=== PATIENT | female | born 1970 | race Hispanic/Latino ===

== ENCOUNTER 2022-08-09 13:55 | Emergency (ER) | payer SELFPAY ==
[2022-08-09] MEDS ORDERED: NA CHLORIDE 0.9% 1,000 ML ONE (14:24)
[2022-08-09 14:39] LABS: Absolute Lymphocytes (CBC) 1.2 K/uL (0.7-4.9); Hematocrit 23.6 % (36.0-45.0); Lymphocytes % 16.1 % (15.3-44.8); MCV 68.8 fL (80-100); MPV 6.4 fL (7.6-11.3); RBC Red Blood Cell Count 3.43 M/uL (3.86-4.86)
[2022-08-09] MEDS ORDERED: dilTIAZem HCL 25 MG/5 ML VIAL IV ONE (14:41)
[2022-08-09 14:59] LABS: Albumin 2.2 g/dL (3.4-5.0); Bilirubin Direct 0.1 mg/dL (0-0.2); Bilirubin Indirect, Calculated 0.3 mg/dL (0.2-0.8); Bilirubin Total 0.4 mg/dL (0.2-1.0); Magnesium 1.9 mg/dL (1.6-2.4); Potassium 2.8 mEq/L (3.5-5.1); Troponin High Sensitivity 7.1 pg/mL (<58.9)
[2022-08-09] MEDS ORDERED: POTASSIUM CL SA 10 MEQ TAB PO ONE (15:48)
[2022-08-09] MEDS ORDERED: AMIODARONE HCL 150 MG/3 ML INJ IV ONE (15:48)
[2022-08-09] MEDS ORDERED: KCL 20 MEQ/100 mL IVPB 200 ML IV ONE (15:48)
[2022-08-09] MEDS ORDERED: D5W 100 ML IV ONE (15:49)
--- NOTE | 2022-08-09 15:53 | RAD REPORT ---
EXAM DESCRIPTION: CT - Abdomen Pelvis W Contrast - 08/09/2022 3:17 pm CLINICAL HISTORY: ABD PAIN COMPARISON: No comparisons TECHNIQUE: Thin cut axial CT imaging of the abdomen and pelvis was performed following intravenous a dministration of 75 mL Isovue 300. Multiplanar reformats were generated and reviewed. All CT scans are performed using dose optimization technique as appropriate and may include automated exposure control or mA/KV adjustment according to patient size. FINDINGS: No suspicious findings in the lung bases. The liver, spleen, and pancreas show no suspicious findings. Gallbladder and biliary tree are also wi thout suspicious finding. Symmetric renal function is seen with no hydronephrosis or suspicious renal mass. No dilated bowel loops. Nonspecific fluid filling throughout small bowel loops fall through the abdom en. The appendix is visualized and is normal appearance. Short segment of mid sigmoid colon wall thic kening with adjacent pronounced inflammatory changes, measuring 6.5 centimeter in length. There is an adjacent fluid collection along the posteroinferior adventitia of the colon, extending into the deep pelvis, interposed between the colonic segment and the anterior wall of the retroverted uterus, jorge uring 5.0 x 4.8 x 2.8 centimeter in greatest CC, transverse, and AP dimensions. The pattern of enhanc ement of the involved sigmoid segment is rather nodular. There is abrupt transition to the non inflam ed bowel both proximally and distally, therefore an underlying mucosal mass cannot be entirely exclud ed. No free air, or free fluid. No hernia, mass or bulky lymphadenopathy. The urinary bladder is with out significant finding. No suspicious bony findings. IMPRESSION: Short segment of colonic wall thickening with nodular enhancement involving the mid sigm oid colon, measuring 6.5 centimeter in length. Adjacent fluid collection posterior inferiorly measuri ng up to 5 centimeter in size, concerning for a paracolic abscess. This could potentially be accessib le through a left posterior approach, although some intervening left internal iliac vascular branches may limit safety of the approach. Given the nodular appearance of the enhancement and the abrupt transition to the more distal and prox imal segments of the sigmoid colon, an underlying mucosal mass cannot be entirely excluded. Follow-up cross-sectional imaging or colonoscopy would be recommended following resolution of the infection, t o exclude an underlying mass. The findings were communicated to Adama Hoang on 08/09/2022 at 15:45 hours.
[2022-08-09 16:10] LABS: Protime INR 1.28
[2022-08-09] MEDS ORDERED: NA CHLORIDE 0.9% 100 ML ONE (17:24)
[2022-08-09] MEDS ORDERED: PIPERACIL/TAZO 3.375 GM VIAL IV ONE (17:24)
--- NOTE | 2022-08-09 17:24 | ER ---
Nurse's Notes [facility] Name: Anastasia Duran Age: 52 yrs Sex: Female : 1970 Arrival Date: 08/09/2022 Time: 13:55 Bed 16 Private MD: Diagnosis: Perforated diverticulitis with abscess;Atrial flutter with rapid rate;Hypokalemia;Syncope Presentation: 08/09 13:53 Method Of Arrival: EMS: [facility] 13:53 Coronavirus screen: Vaccine status: Patient reports being unvaccinated. Ebola Screen: nj1 Patient denies travel to an Ebola-affected area in the 21 days before illness onset. Initial Sepsis Screen: Does the patient meet any 2 criteria? HR > 90 bpm. No. Patient's initial sepsis screen is negative. Does the patient have a suspected source of infection? No. Patient's initial sepsis screen is negative. 14:13 Chief complaint: Patient states: [facility], had nj1 severe abdominal pain, pass out, was incontinent of urine/stool. 14:13 Risk Assessment: Do you want to hurt yourself or someone else? Patient reports no [facility] desire to harm self or others. Onset of symptoms was August 09, 2022. 14:13 Acuity: DO 2 nj1 Triage Assessment: 14:15 Pain: Denies pain. nj1 14:15 General: Appears in no apparent distress. uncomfortable, Behavior is calm, cooperative, nj1 appropriate for age. 14:15 Neuro: Level of Consciousness is awake, alert, obeys commands, Oriented to person, nj1 place, time, situation. Cardiovascular: Rhythm is Tachy. Respiratory: Airway is patent Respiratory effort is even, unlabored. GI: Patient currently denies abdominal pain. Derm: Skin is pale. Historical: - Allergies: 14:13 No Known Allergies; nj1 - PMHx: 14:13 None; nj1 - PSHx: 14:13 None; nj1 - Immunization history:: Client reports having NOT received the Covid vaccine. - Social history:: Smoking status: Patient denies any tobacco usage or history of. - Family history:: not pertinent. Screenin:[facility] ED Fall Risk Assessment (Adult) History of falling in the last 3 months, nj1 including since admission Yes- physiologic fall (2 pts) Confusion or Disorientation No (0 pts) Intoxicated or Sedated No (0 pts) Impaired Gait No (0 pts) Mobility Assist Device Used No (0 pt) Altered Elimination Score/Fall Risk Level 0 - 2 = Low Risk Oriented to surroundings, Maintained a safe environment, Hourly rounding (assess needs \T\ fall precautionary measures) done. Abuse screen: Denies threats or abuse. Denies injuries from another. Nutritional screening: No deficits noted. Tuberculosis screening: No symptoms or risk factors identified. Assessment: 14:40 Reassessment: Patient appears in no apparent distress at this time. Patient and/or nj1 family updated on plan of care and expected duration. Pain level reassessed. Patient is alert, oriented x 3, equal unlabored respirations, skin warm/dry/pink. Patient denies pain at this time. 15:50 Reassessment: Patient appears in no apparent distress at this time. Patient and/or nj1 family updated on plan of care and expected duration. Pain level reassessed. Patient is alert, oriented x 3, equal unlabored respirations, skin warm/dry/pink. Patient denies pain at this time. 16:20 Reassessment: Patient appears in no apparent distress at this time. Patient and/or nj1 family updated on plan of care and expected duration. Pain level reassessed. Patient is alert, oriented x 3, equal unlabored respirations, skin warm/dry/pink. Patient denies pain at this time. 17:25 Reassessment: Patient appears in no apparent distress at this time. Patient and/or nj1 family updated on plan of care and expected duration. Pain level reassessed. Patient is alert, oriented x 3, equal unlabored respirations, skin warm/dry/pink. Patient denies pain at this time. 18:55 Reassessment: Patient appears in no apparent distress at this time. Patient and/or nj1 family updated on plan of care and expected duration. Pain level reassessed. Patient is alert, oriented x 3, equal unlabored respirations, skin warm/dry/pink. Feels warm. 19:08 Reassessment: Report called to nurse Patten at [facility]. [facility] 19:45 Reassessment: Patient appears in no apparent distress at this time. Patient and/or nj1 family updated on plan of care and expected duration. Pain level reassessed. Patient is alert, oriented x 3, equal unlabored respirations, skin warm/dry/pink. Patient denies pain at this time. Patient states feeling better. Patient states symptoms have improved. 20:05 Reassessment: Report given to Damien FUNG, [facility]. [facility] Vital Signs: 14:13 BP 127 / 70; Pulse 146; Resp 18; Temp 98.8(O); Pulse Ox 100% on R/A; Weight 49.9 kg; nj1 Height 5 ft. 0 in. ; Pain 0/10; 14:15 Pulse Ox 2 lpm NC; nj1 14:42 BP 98 / 60; Pulse 138; Resp 18; Pulse Ox 100% on 2 lpm NC; nj1 15:30 BP 105 / 66; Pulse 138; Resp 16; Pulse Ox 100% on 2 lpm NC; nj1 16:16 BP 108 / 64; Pulse 125; Resp 16; Pulse Ox 100% on 2 lpm NC; nj1 17:48 BP 103 / 70; Pulse 119; Resp 16; Pulse Ox 100% on 2 lpm NC; nj1 18:50 BP 94 / 63; Pulse 115; Resp 16; Temp 100.1(O); Pulse Ox 100% on 2 lpm NC; Pain 0/10; nj1 19:45 BP 96 / 68; Pulse 105; Resp 17; Temp 99.2(O); Pulse Ox 100% on 2 lpm NC; Pain 0/10; nj1 14:13 Body Mass Index 21.48 (49.90 kg, 152.4 cm) nj 14:13 Pain Scale: Adult [facility] 18:50 Pain Scale: Adult [facility] 19:45 Pain Scale: Adult [facility] ED Course: 13:58 Patient arrived in ED. eb 14:01 Adama Hoang MD is Attending Physician. rt 14:15 Patient has correct armband on for positive identification. Bed in low position. Call [facility] light in reach. 14:26 EKG done, by ED staff. tm3 14:27 Lesvia Sanchez, LUCY is Primary Nurse. nj1 14:29 Radiology exam delayed due to lab results not completed at this time. (BUN/Creatinine) jg10 IV insertion attempt and/or patient not having appropriate IV at this time. 14:47 Triage completed. nj1 14:48 Arm band placed on. nj1 14:55 XRAY Chest (1 view) In Process Unspecified. EDMS 15:19 CT Abd/Pelvis - IV Contrast Only In Process Unspecified. EDMS 15:41 Inserted saline lock: 20 gauge in right antecubital area, using aseptic technique. db 17:12 Blood Culture Adult (2) Sent. hb 17:12 Lactate w/ 2H reflex if indic. Sent. hb 17:26 initiated a transfer with ALEJO Campo from the [facility] Transfer Center/ per ALEJO . [facility], [facility], [facility] and [facility] are all at capacity and will have to decline the patient in transfer/. 17:26 initiated a transfer with Rohini from the [facility] transfer center/ She will check her eb facilities and see which has GI and IR and will call us back. 17:50 per Rohini [facility], [facility], and [place] will have to decline the patient they eb do not have the services requested. 17:[address] Hoang with the GI press set up person for [facility] for patient transfer eb consultation. 18:[address] Hoang with final doc-to-doc. mb4 18:03 Acceptance at [facility] \[id number]. mb4 19:19 No provider procedures requiring assistance completed. nj1 19:19 Patient transferred, IV remains in place. nj1 Administered Medications: 14:20 Drug: NS 0.9% IV 1000 ml Route: IV; Rate: 1 bolus; Site: left antecubital; nj1 15:20 Follow up: Response: No adverse reaction; IV Status: Completed infusion; IV Intake: nj1 1000ml 14:36 Drug: Diltiazem IVP 10 mg Route: IVP; Infused Over: 2 mins; Site: left antecubital; nj1 15:32 Follow up: Response: No adverse reaction nj1 15:55 Drug: D5W IVPB 100 ml, amiodarone IVPB 150 mg 150 mg Volume: 100 ml; Route: IVPB; Rate: nj1 588 ml/hr; Infused Over: 10 mins; Site: left antecubital; 16:05 Follow up: Response: No adverse reaction; IV Status: Completed infusion; IV Intake: nj1 100ml 16:05 Drug: Potassium Chloride PO 40 mEq Route: PO; nj1 17:54 Follow up: Response: No adverse reaction nj1 16:09 Drug: Potassium Chloride IV 40 mEq Route: IV; Rate: calculated rate; Site: left nj1 antecubital; 17:25 Drug: Piperacillin-Tazobactam IVPB 3.375 grams Route: IVPB; Infused Over: 60 mins; nj1 Site: right antecubital; 17:58 Follow up: Response: No adverse reaction; IV Status: Completed infusion; IV Intake: nj1 100ml 18:55 Drug: Acetaminophen PO 1000 mg Route: PO; nj1 19:45 Follow up: Response: No adverse reaction; Temperature is decreased nj1 Medication: 19:19 VIS not applicable for this client. nj1 Intake: 15:20 IV: 1000ml; Total: 1000ml. nj1 16:05 IV: 100ml; Total: 1100ml. nj1 17:58 IV: 100ml; Total: 1200ml. nj1 Outcome: 17:23 ER care complete, transfer ordered by . rt 19:15 Transferred by ground EMS to other acute care facility: [facility]. Transfer form nj1 completed. 19:15 Condition: stable nj1 19:15 Instructed on the need for transfer. 20:15 Patient left the ED. nj1 Signatures: Dispatcher [employer] EDMS Kyler Go tm3 Renetta Dawson, Melba Cuellar RN, Mackenzie mb4 Fallon Shaffer RN RN db Galvan, Juliet jg10 Adama Hoang MD MD rt Lesvia Sanchez RN RN nj1
--- NOTE | 2022-08-09 17:25 | EDPHYS ---
Physician Documentation [facility] Name: Anastasia Duran Age: 52 yrs Sex: Female : 1970 Arrival Date: 08/09/2022 Time: 13:55 Bed 16 Private MD: ED Physician Adama Hoang HPI: 08/09 16:42 This 52 yrs old Female presents to ER via EMS with complaints of Syncope, rt abdominal pain. 16:42 Patient presents to the ED with an acute onset of a lower abdominal pain. It was severe rt and lasted for about 15 minutes. Patient was visiting a family member any nursing, that occurred. She subsequently became very lightheaded, had a syncopal event. Denies any chest pain. Patient states that the abdominal pain has improved but is still present. She reported nausea the vomiting. Denies other acute complaints at this time. Symptoms are moderate severity, no other aggravating or alleviating factors.. Historical: - Allergies: 14:13 No Known Allergies; nj1 - PMHx: 14:13 None; nj1 - PSHx: 14:13 None; nj1 - Immunization history:: Client reports having NOT received the Covid vaccine. - Social history:: Smoking status: Patient denies any tobacco usage or history of. - Family history:: not pertinent. ROS: 16:42 Constitutional: Negative for fever, chills, and weight loss, Cardiovascular: Negative rt for chest pain, palpitations, and edema, Respiratory: Negative for shortness of breath, cough, wheezing, and pleuritic chest pain, MS/Extremity: Negative for injury and deformity, Skin: Negative for injury, rash, and discoloration, Psych: Negative for depression, anxiety, suicide ideation, homicidal ideation, and hallucinations. 16:42 Abdomen/GI: Positive for abdominal pain, nausea. 16:42 Neuro: Positive for syncope, Negative for altered mental status. Exam: 16:42 Constitutional: This is a well developed, well nourished patient who is awake, alert, rt and in no acute distress. Head/Face: Normocephalic, atraumatic. Chest/axilla: Normal chest wall appearance and motion. Nontender with no deformity. No lesions are appreciated. Cardiovascular: Regular rate and rhythm with a normal S1 and S2. No gallops, murmurs, or rubs. Normal PMI, no JVD. No pulse deficits. Respiratory: Lungs have equal breath sounds bilaterally, clear to auscultation and percussion. No rales, rhonchi or wheezes noted. No increased work of breathing, no retractions or nasal flaring. Skin: Warm, dry with normal turgor. Normal color with no rashes, no lesions, and no evidence of cellulitis. MS/ Extremity: Pulses equal, no cyanosis. Neurovascular intact. Full, normal range of motion. 16:42 ECG was reviewed by the Attending Physician. 16:42 Abdomen/GI: Tenderness to the suprapubic to left lower quadrant region, no rebound, guarding, distention. Vital Signs: 14:13 BP 127 / 70; Pulse 146; Resp 18; Temp 98.8(O); Pulse Ox 100% on R/A; Weight 49.9 kg; nj1 Height 5 ft. 0 in. ; Pain 0/10; 14:15 Pulse Ox 2 lpm NC; nj1 14:42 BP 98 / 60; Pulse 138; Resp 18; Pulse Ox 100% on 2 lpm NC; nj1 15:30 BP 105 / 66; Pulse 138; Resp 16; Pulse Ox 100% on 2 lpm NC; nj1 16:16 BP 108 / 64; Pulse 125; Resp 16; Pulse Ox 100% on 2 lpm NC; nj1 17:48 BP 103 / 70; Pulse 119; Resp 16; Pulse Ox 100% on 2 lpm NC; nj1 18:50 BP 94 / 63; Pulse 115; Resp 16; Temp 100.1(O); Pulse Ox 100% on 2 lpm NC; Pain 0/10; nj1 19:45 BP 96 / 68; Pulse 105; Resp 17; Temp 99.2(O); Pulse Ox 100% on 2 lpm NC; Pain 0/10; nj1 14:13 Body Mass Index 21.48 (49.90 kg, 152.4 cm) nj 14:13 Pain Scale: Adult nj1 18:50 Pain Scale: Adult nj1 19:45 Pain Scale: Adult nj1 MDM: 14:18 Patient medically screened. rt 16:42 Differential Diagnosis Syncope, atrial flutter, bowel obstruction, intra-abdominal rt abscess. Data reviewed: vital signs, nurses notes, lab test result(s), EKG, radiologic studies. Consideration of Admission/Observation Patient was admitted/placed on observation. Management of patient was discussed with the following: Hospitalist: Agrees to admit. Party Bus Driver: Discussed with general surgery who will evaluate patient in the emergency department. Independent interpretation of the following test(s) in the Emergency Department CT Scan: My interpretation is Fluid collection identified in the interpretation of CT scan images. Discussion of test interpretation with radiology: I had a discussion with radiology regarding a test interpretation. Discussed that the "collection is not likely assessable via IR. Counseling: I had a detailed discussion with the patient and/or guardian regarding: the historical points, exam findings, and any diagnostic results supporting the discharge/admit diagnosis, lab results, radiology results, the need for further work-up and treatment in the hospital. 08/09 14:27 Order name: Basic Metabolic Panel; Complete Time: 15:12 rt 08/09 14:27 Order name: CBC with Diff rt 08/09 14:27 Order name: LFT's; Complete Time: 15:12 rt 08/09 14:27 Order name: Magnesium; Complete Time: 15:12 rt 08/09 14:27 Order name: NT PRO-BNP; Complete Time: 15:12 rt 08/09 14:27 Order name: PT-INR; Complete Time: 17:52 rt 08/09 14:27 Order name: Troponin HS; Complete Time: 15:12 rt 08/09 14:27 Order name: Lipase; Complete Time: 15:12 rt 08/09 16:01 Order name: Lactate w/ 2H reflex if indic.; Complete Time: 17:52 rt 08/09 16:01 Order name: Blood Culture Adult (2) rt 08/09 20:11 Order name: Manual Differential EDMS 08/09 14:27 Order name: XRAY Chest (1 view) rt 08/09 14:27 Order name: CT Abd/Pelvis - IV Contrast Only; Complete Time: 15:59 rt 08/09 14:27 Order name: EKG; Complete Time: 14:28 rt 08/09 14:27 Order name: Cardiac monitoring; Complete Time: 14:39 rt 08/09 14:27 Order name: EKG - Nurse/Tech; Complete Time: 14:38 rt 08/09 14:27 Order name: IV Saline Lock; Complete Time: 14:38 rt 08/09 14:27 Order name: Labs collected and sent; Complete Time: 14:38 rt 08/09 14:27 Order name: O2 Per Protocol; Complete Time: 14:38 rt 08/09 14:27 Order name: O2 Sat Monitoring; Complete Time: 14:38 rt EC:42 Rate is 144 beats/min. Rhythm is regular, A flutter with Occasional PVCs. QRS [place] is rt Normal. QRS interval is normal. QT interval is normal. Interpreted by me. 16:42 Rate is 145 beats/min. Rhythm is regular, A flutter with Occasional PVCs. QRS interval rt is normal. QT interval is normal. No Q waves. Interpreted by me. Administered Medications: 14:20 Drug: NS 0.9% IV 1000 ml Route: IV; Rate: 1 bolus; Site: left antecubital; nj1 15:20 Follow up: Response: No adverse reaction; IV Status: Completed infusion; IV Intake: nj1 1000ml 14:36 Drug: Diltiazem IVP 10 mg Route: IVP; Infused Over: 2 mins; Site: left antecubital; nj1 15:32 Follow up: Response: No adverse reaction nj1 15:55 Drug: D5W IVPB 100 ml, amiodarone IVPB 150 mg 150 mg Volume: 100 ml; Route: IVPB; Rate: nj1 588 ml/hr; Infused Over: 10 mins; Site: left antecubital; 16:05 Follow up: Response: No adverse reaction; IV Status: Completed infusion; IV Intake: nj1 100ml 16:05 Drug: Potassium Chloride PO 40 mEq Route: PO; nj1 17:54 Follow up: Response: No adverse reaction nj1 16:09 Drug: Potassium Chloride IV 40 mEq Route: IV; Rate: calculated rate; Site: left nj1 antecubital; 17:25 Drug: Piperacillin-Tazobactam IVPB 3.375 grams Route: IVPB; Infused Over: 60 mins; nj1 Site: right antecubital; 17:58 Follow up: Response: No adverse reaction; IV Status: Completed infusion; IV Intake: nj1 100ml 18:55 Drug: Acetaminophen PO 1000 mg Route: PO; nj1 19:45 Follow up: Response: No adverse reaction; Temperature is decreased nj1 Disposition Summary: 08/09/22 17:23 Transfer Ordered Transfer Location: [facility] rt Reason: Higher level of care rt Condition: Serious rt Problem: new rt Symptoms: have improved rt Accepting Physician: Dr. Nelson(08/09/22 20:15) nj1 Diagnosis - Perforated diverticulitis with abscess rt - Atrial flutter with rapid rate rt - Hypokalemia rt - Syncope rt Forms: - Medication Reconciliation Form rt - SBAR form rt Critical care time excluding procedures: 18:25 Critical care time: Bedside Care: 30 minutes, Consultation: 10 minutes. Total time: 40 rt minutes Signatures: Dispatcher [employer] EDTX Adama Hoang MD MD rt Lesvia Sanchez RN RN nj1 Corrections: (The following items were deleted from the chart) 18:01 17:23 Dr. peter rt 20:15 18:01 Dr. Nelson rt nj1
[2022-08-09] MEDS ORDERED: ACETAMINOPHEN 500 MG TAB ONE (18:43)
[2022-08-09 20:20] LABS: Anisocytosis 1+; Blood Morphology Comment NOTED (NOT SEEN); Platelet Estimate INCR; Smudge Cells PRESENT
[2022-08-09 20:30] VITALS: O2SAT 100
[2022-08-09 20:48] VITALS: BP 96/68; TEMP 99.2
--- NOTE | 2022-08-11 14:21 | EKG ---
Test Date: 2022-08-09 Test Time: 14:20:42 Holter Scanning Technician: TM MEASUREMENT RESULTS: Intervals: Rate: 146 WA: 112 QRSD: 96 QT: 276 QTc: 430 Blackwell: P: 58 WA: 112 QRS: -47 T: 41 INTERPRETIVE STATEMENTS: Sinus tachycardia Low voltage QRS Left anterior fascicular block Abnormal ECG No previous ECG available for comparison Electronically Signed On 08-11-22 14:17:46 CDT by Stephane Baker
--- NOTE | 2022-08-12 10:19 | EKG ---
Test Date: 2022-08-09 Test Time: 15:08:10 Skilled Laborer: HB MEASUREMENT RESULTS: Intervals: Rate: 145 DE: 116 QRSD: 90 QT: 284 QTc: 441 Wayne: P: 28 DE: 116 QRS: -27 T: 11 INTERPRETIVE STATEMENTS: Sinus tachycardia with fusion complexes Low voltage QRS ST & T wave abnormality, consider anterior ischemia Abnormal ECG Compared to ECG 08/09/2022 14:24:03 ST (T wave) deviation now present Possible ischemia now present Left-axis deviation no longer present Electronically Signed On 08-12-22 10:14:19 CDT by Alan Yeung
--- NOTE | 2022-08-12 10:20 | EKG ---
Test Date: 2022-08-09 Test Time: 14:24:03 Merchandise Manager: DAVID MEASUREMENT RESULTS: Intervals: Rate: 144 TX: 122 QRSD: 98 QT: 296 QTc: 458 Reading: P: 67 TX: 122 QRS: -35 T: 39 INTERPRETIVE STATEMENTS: Sinus tachycardia with fusion complexes Left axis deviation Low voltage QRS Abnormal ECG Compared to ECG 08/09/2022 14:20:42 Fusion complex(es) now present Left-axis deviation now present Left anterior fascicular block no longer present Electronically Signed On 08-12-22 10:14:21 CDT by Alan Yeung
== END 2022-08-09 20:15 | disposition short-term general hospital (02) ==
LOC: ER 13:55
DX: E87.6 Hypokalemia (principal); I48.92 Unspecified atrial flutter; K57.20 Diverticulitis of large intestine with perforation and abscess without bleeding
CPT/HCPCS: 36415; 71045; 74177; 80048; 80076; 83605; 83690; 83735; 83880; 84484; 85025; 85610; 87040; 93005; 96361; 96365; 96375; 99285; J0282; J2543; J3480; J7030; Q9967